=== PATIENT | male | born 1960 | race Caucasian/White ===

== ENCOUNTER 2017-03-05 09:02 | Inpatient (IN) | payer MEDICAID ==
[2017-03-05] MEDS ORDERED: IPRATROPIUM/ALBUTEROL 3 ML DEYVIAL IH ONE (09:45)
--- NOTE | 2017-03-05 09:52 | EDPHY ---
H & P Time Seen by Provider: 03/05/17 09:13 HPI/ROS: HPI Shortness of breath. 56-year-old male by [facility] This patient has a history of heavy smoking and probable COPD. He reports that he has felt short of breath, worse when awakening in the morning for at least the last 6 months. He was seen at [facility] 3 weeks ago. He was diagnosed at that time with a walking pneumonia. He was prescribed Levaquin, 750 mg daily. He reports that he took 1-2 of these pills and then stop taking this medication. He reports that he then started taking the medication again and took 750 mg this morning. He has 4 tablets left. He complained to the staff at the [facility] about feeling short of breath this morning and they sent him to the emergency department. He also reports that he has had an intermittent nonproductive cough for at least the last 6 months as well. ROS: Constitutional: No fever, no chills. No weakness. Eyes: No discharge. No changes in vision. ENT: No sore throat. No nasal congestion or rhinorrhea. Respiratory: As above. Cardiac: No chest pain, no palpitations. Gastrointestinal: No abdominal pain, no vomiting, no diarrhea. Musculoskeletal: No back pain. No neck pain. No myalgias or arthralgias. Skin: No rashes. Neurological: No headache. No focal weakness or altered sensation. Past medical history: Spinal surgery, pneumonia, sepsis, COPD. Social history: Heavy smoker, alcohol abuse, homeless. Physical Exam: General Appearance: Alert, no distress. Disheveled. This patient is responding to questions appropriately and in full sentences. This patient appears well-hydrated and well-nourished. Eyes: Pupils equal and round no pallor or injection. No lid edema, erythema or injection. Respiratory: There are no retractions, air movement is diminished bilaterally. No wheezing. No rhonchi or crackles noted. No tachypnea. Cardiovascular: Regular rate and rhythm. No murmur. Gastrointestinal: Abdomen is soft and nontender, no masses, bowel sounds normal. No focal tenderness at McBurney's point. No Hernandez sign. Neurological: Motor sensory function is grossly intact. Cranial nerves are normal. Gait is normal. Skin: Warm and dry, no rashes. Surgical scar elliptical around left scapula. Musculoskeletal: Neck is supple and nontender. Extremities are symmetrical. All joints range without pain or impingement. Psychiatric: No agitation. No depression. Database: EKG: Imaging: Chest x-ray PA and lateral; the cardiac mediastinal silhouette is unremarkable. Significant for right middle lobe infiltrate superimposed for chronic airway disease. No other acute cardiopulmonary disease process noted. Interpreted by me. Procedures: Emergency department course: IV placed per EMS, vital signs reviewed, patient is afebrile. Vital signs are unremarkable. He is 94% currently on 1 L nasal cannula oxygen. He will be started on [id number] albuterol/Atrovent nebulizer treatments. Chest x-ray will be obtained. 10:15 a.m., patient re-evaluated. Room air pulse oximetry while at rest is 85% . With any activity drops to the upper 70s. Plan for admission discussed. Blood cultures will be drawn. Standard lab work obtained. He will be started on IV Rocephin and azithromycin. I am concerned about resistance to Levaquin being that he took this for some time and then prematurely stopped taking it. Hospitalist paged. Patient does not meet criteria for sepsis. 10:30 a.m., spoke with hospitalist. Patient accepted for admission by Dr. Benson. Patient's remaining emergency department course under my care has been unremarkable. Blood cultures obtained in the emergency department. Antibiotics started as above in the emergency department. He was admitted in stable condition to the hospitalist service. Differential Diagnosis: The differential diagnosis on this patient includes but is not limited to pneumonia, COPD exacerbation, bronchitis, chronic hypoxia. This represents a partial list of diagnoses considered. These considerations are based on history , physical exam, past history, reassessment and diagnostic testing. Smoking Status: Current every day smoker Constitutional: Initial Vital Signs Temperature (C) 36.7 C 03/05/17 09:07 Heart Rate 108 H 03/05/17 09:07 Respiratory Rate 18 03/05/17 09:07 Blood Pressure 117/80 03/05/17 09:07 O2 Sat (%) 89 L 03/05/17 09:07 O2 Delivery Mode Room Air O2 (L/minute) 1 Allergies/Adverse Reactions: No Known Allergies Allergy (Unverified 03/05/17 09:07) Home Medications: Medication Instructions Recorded levAQUIN 03/05/17 Medical Decision Making - Diagnostics Imaging Results: Imaging Impressions Chest X-Ray 03/05/17 09:14 Impression: Right middle lobe pneumonia superimposed on suspected underlying chronic airways disease. - Data Points Laboratory Results: Laboratory Results 03/05/17 09:00 03/05/17 09:00 03/05/17 03/05/17 09:00 09:00 WBC 9.17 10^3/uL 10^3/uL (3.80-9.50) RBC 5.98 10^6/uL 10^6/uL (4.40-6.38) Hgb 18.0 g/dL H g/dL (13.7-17.5) Hct 55.1 % H % (40.0-51.0) MCV 92.1 fL fL (81.5-99.8) MCH 30.1 pg pg (27.9-34.1) MCHC 32.7 g/dL g/dL (32.4-36.7) RDW 15.8 % H % (11.5-15.2) Plt Count 267 10^3/uL 10^3/uL (150-400) MPV 11.0 fL fL (8.7-11.7) Neut % (Auto) 66.1 % % (39.3-74.2) Lymph % (Auto) 23.9 % % (15.0-45.0) [place] % (Auto) 5.7 % % (4.5-13.0) Eos % (Auto) 3.3 % % (0.6-7.6) Baso % (Auto) 0.7 % % (0.3-1.7) Nucleat RBC Rel Count 0.0 % % (0.0-0.2) Absolute Neuts (auto) 6.07 10^3/uL 10^3/uL (1.70-6.50) Absolute Lymphs (auto) 2.19 10^3/uL 10^3/uL (1.00-3.00) Absolute Monos (auto) 0.52 10^3/uL 10^3/uL (0.30-0.80) Absolute Eos (auto) 0.30 10^3/uL 10^3/uL (0.03-0.40) Absolute Basos (auto) 0.06 10^3/uL 10^3/uL (0.02-0.10) Absolute Nucleated RBC 0.00 10^3/uL 10^3/uL (0-0.01) Immature Gran % 0.3 % % (0.0-1.1) Immature Gran # 0.03 10^3/uL 10^3/uL (0.00-0.10) Sodium 145 mEq/L mEq/L (135-145) Potassium 4.9 mEq/L mEq/L (3.5-5.2) Chloride 101 mEq/L mEq/L (97-110) Carbon Dioxide 27 mEq/l mEq/l (22-31) Anion Gap 17 mEq/L H mEq/L (8-16) BUN 23 mg/dL mg/dL (7-23) Creatinine 0.8 mg/dL mg/dL (0.7-1.3) Estimated GFR > 60 Glucose 86 mg/dL mg/dL (70-100) Calcium 10.0 mg/dL mg/dL (8.5-10.4) Medications Given: Discontinued Medications Albuterol/Ipratropium (Duoneb) 6 ml IH EDNOW ONE Stop: 03/05/17 09:46 Last Admin: 03/05/17 09:48 Dose: 6 ml Sodium Chloride (Ns) 1,000 mls @ 0 mls/hr IV ONCE ONE; Wide Open PRN Reason: Protocol Stop: 03/05/17 10:19 Last Admin: 03/05/17 10:24 Dose: 1,000 mls Departure - Departure Disposition: [facility] Inpatient Acute Clinical Impression: COPD exacerbation, Pneumonia, Hypoxia
[2017-03-05] MEDS ORDERED: AZITHROMYCIN IV 500 MG in D5W 250 ML IV ONE (10:18)
[2017-03-05] MEDS ORDERED: cefTRIAXone 1 GM in STERILE WATER INJ 10 ML IV ONE (10:18)
[2017-03-05] MEDS ORDERED: NS 1,000 ML IV ONE ×2 (10:18→11:24)
[2017-03-05 10:30] LABS: PLATELET COUNT 267 10^3/uL (150-400)
[2017-03-05] MEDS ORDERED: ONDANSETRON DISINTEGRATING 4 MG TAB PO PRN (11:24)
[2017-03-05] MEDS ORDERED: ONDANSETRON 4 MG/2 ML VIAL IVP PRN (11:24)
[2017-03-05] MEDS ORDERED: ACETAMINOPHEN 325 MG TAB PO PRN (11:24)
[2017-03-05] MEDS ORDERED: ALBUTEROL 60 PUFFS/8 GM MDI IH PRN (14:16)
[2017-03-05] MEDS ORDERED: HYDROCODONE/APAP 5/325 TAB PO PRN (14:16)
[2017-03-05 14:42] VITALS: O2SAT 90
--- NOTE | 2017-03-05 14:52 | GHP ---
[f rep st] HISTORY AND PHYSICAL DATE OF ADMISSION: 03/05/2017 CHIEF COMPLAINT: Dyspnea. HISTORY OF PRESENT ILLNESS: A 56-year-old male with a preceding history of COPD, who presents with a pproximately 3 weeks of shortness of breath, fatigue, nonproductive cough, subjective fevers and chil ls. Patient cannot specifically give a history of progressive symptoms. Reports that he has been ev aluated at [facility], another Hospital, as well as [facility], in this time period and been prescribed antibiotics on more than 1 occasion, none of which has he completed courses for, but repre sents to the emergency department with persistent dyspnea and the perception that he has pneumonia. The patient endorses epigastric abdominal pain. No nausea or vomiting. Denies any dysuria, diarrhea , lower extremity edema, rashes, or known sick contacts. The patient is homeless, however, and curre ntly residing at various shelters. PAST MEDICAL HISTORY: COPD. SOCIAL HISTORY: Patient still smokes a pack per day. Denies alcohol. Does use marijuana. Denies i llicit drugs. FAMILY HISTORY: Positive for diabetes. REVIEW OF SYSTEMS: A 10-point review of systems is negative with the exception of that reported in t he HPI. PHYSICAL EXAMINATION: VITAL SIGNS: Blood pressure 118/73, heart rate 108, sating 89% on room air, 3 6.7. GENERAL: This is a thin, disheveled middle-aged male in no acute distress. HEENT: Notable for dry mucous membranes. Eye exam is negative for any icterus. CARDIAC: Patient's heart sounds are d istant. PULMONARY: Diminished breath sounds with a prolonged expiratory phase, isolated wheeze hear d on the right, otherwise, no rales or rhonchi. GASTROINTESTINAL: Positive bowel sounds. Abdomen i s thin. MUSCULOSKELETAL: Negative for any lower extremity edema. SKIN: Negative for any rashes. NEUROLOGIC: He is alert and oriented x3. PSYCHIATRIC: He is agitated on my interview and examinati on. DATA: White count 9.1, hematocrit 55.1, platelets of 267. Creatinine 0.8, anion gap is 17, sodium 1 45. Chest x-ray, which I personally reviewed and interpreted, shows hyperinflation. Radiology comme nts on a right middle lobe infiltrate. Have no previous to compare to. ASSESSMENT AND PLAN: This is a 56-year-old male presenting with dyspnea: 1. Acute hypoxic respiratory failure. Patient is presenting with oxygen saturations of 89% on room air. Suspect based on history and symptoms, this is likely secondary to his chronic obstructive pulm onary disease confounded by bronchitis. Will admit the patient, complete active course of antibiotic s, treat with inhaled beta agonist and continue his home dosing of inhaled steroids. Have sent a res piratory viral panel, as well as a procalcitonin to better understand the patient's admission imaging and history of recent pulmonary complaints. 2. Chronic obstructive pulmonary disease. Clearly hyperinflation on chest imaging at admission, wit h active tobacco dependence. Again, will treat as above. 3. Anion gap. Suspect likely related to ketosis from poor p.o. intake in his homeless status. We w ill fluid resuscitate and recheck in the morning. 4. Polycythemia. Again, suspect related to hemoconcentration. Will recheck in the morning. 5. Prophylaxis with Lovenox. 6. Diet, regular. DISPOSITION: I expect in less than 2 midnights if the patient responds well to hydration and respira tory care. I have discussed the case with the emergency room physician. Patient will be triaged to the medical- surgical floor for care. /[id number]/MODL
[2017-03-05] MEDS: guaiFENesin 600 MG TAB.ER PO SCH ×2 (15:20→20:31)
[2017-03-05] MEDS ORDERED: LICE KILLING SHAMPOO 118 ML TP ONE (15:54)
[2017-03-05] MEDS: IPRATROPIUM/ALBUTEROL 3 ML DEYVIAL IH SCH ×3 (16:08→23:19)
[2017-03-05] MEDS: NAPROXEN SODIUM 220 MG TAB PO SCH (20:53)
[2017-03-05] MEDS ORDERED: PREGABALIN 50 MG CAP PO SCH (21:00)
[2017-03-05] MEDS ORDERED: NON-FORMULARY NEW DRUG (Naproxen [Naproxen] 500 MG) PO SCH (21:00)
[2017-03-05] MEDS ORDERED: NAPROXEN 500 MG PO SCH (21:00)
[2017-03-06 05:18] LABS: PLATELET COUNT 224 10^3/uL (150-400)
[2017-03-06] MEDS: IPRATROPIUM/ALBUTEROL 3 ML DEYVIAL IH SCH (06:07)
[2017-03-06] MEDS ORDERED: AZITHROMYCIN IV 500 MG in D5W 250 ML IV SCH (09:00)
[2017-03-06] MEDS ORDERED: ENOXAPARIN 40 MG/0.4 ML SYR SC SCH (09:00)
[2017-03-06] MEDS ORDERED: cefTRIAXone 1 GM in STERILE WATER INJ 10 ML IV SCH (09:00)
[2017-03-06] MEDS ORDERED: ASCORBIC ACID 500 MG TAB PO SCH (09:00)
[2017-03-06] MEDS: guaiFENesin 600 MG TAB.ER PO SCH (09:33)
[2017-03-06] MEDS: NAPROXEN SODIUM 220 MG TAB PO SCH (09:33)
[2017-03-06 09:41] VITALS: BP 115/79; PULSE 105; RESP 16; TEMP 98.3
--- NOTE | 2017-03-06 14:30 | ASDISCHSUM ---
Discharge Information Plan Status:Home with No Needs Medically Cleared to Leave:03/05/2017 Discharge Date:03/06/2017 11:16 AM CM D/C Disposition: ADT D/C Disposition:Home, Routine, Self-Care Projected Discharge Date:03/06/2017 12:00 AM Transportation at D/C: Discharge Delay Reason: Follow-Up Date:03/06/2017 12:00 AM Discharge Slot: Final Diagnosis: Placement Information Patient Contact Information Contact Name:DAKOTACHINTAN Relationship: Address: Home Phone: Work Phone: City: Alternate Phone: State/Zip Code: Email: Financial Information Financial Class:MD Primary Plan Desc:MEDICA[employer] HEALTH FIRST FIELD AGENT Primary Plan Number:[id number] Secondary Plan Desc: Secondary Plan Number: Assessment Information Intervention Information
--- NOTE | 2017-03-06 19:04 | GDS ---
[f rep st] DISCHARGE SUMMARY DISCHARGE DIAGNOSES: Include: 1. Acute chronic obstructive pulmonary disease exacerbation. 2. Presumed community-acquired pneumonia. 3. Lice. 4. Homelessness. 5. Chronic pain. HISTORY OF PRESENT ILLNESS: This is a 56-year-old male who is currently homeless, with COPD, who pre sents with complaints of shortness of breath. For details of patient's initial presentation, please see the history and physical dated 03/05/2017. CONSULTATIVE SERVICES: None. PROCEDURES: None. HOSPITAL COURSE: By issue: 1. Acute chronic obstructive pulmonary disease exacerbation. Patient presented with worsening sympt oms consistent with inaab-ya-dqoontc bronchitis, increasing cough and sputum production. The patient was not wheezing on examination, therefore, was not started on steroid therapy, but was initiated on inhaled beta agonist and antibiotic therapy. The patient had a faster than expected response to the rapy and was nearly symptom-free the morning after hospitalization with stable vital signs surprising ly appropriate for disposition. 2. Presumed community-acquired pneumonia. Patient had preceding history of shortness of breath and cough for several weeks. I suspect likely his initial illness was viral. He was initiated on antibi otics in the outpatient setting. Radiology did comment on a right-sided infiltrate on chest x-ray. We decided to commit to a course of antibiotics, completing his levofloxacin to entirely treat commun ity-acquired pneumonia. The patient will complete the oral therapy with levofloxacin after dispositi on. 3. Chronic pain. Patient was continued on his home regimen without a new prescription. 4. Acute head lice. Patient was treated for lice during his hospital stay. DISPOSITION: Patient is being discharged back to the homeless shelters. We will note he had an unex pectedly fast response to inhaled therapy and antibiotics overnight and was placed sooner than we exp ected for disposition back to the street. Pending studies at the time of this dictation include blood cultures and sputum cultures, which are n o growth preliminarily at the time of disposition. FOLLOWUP APPOINTMENTS: Include with his newly established primary care provider at [facility] f or post disposition followup in the next 1-2 weeks after completion of his antibiotics orally. I spent greater than 30 minutes in the planning and coordination of this discharge. /[id number]/MODL
--- NOTE | 2017-03-07 17:28 | PDMN ---
Medical Necessity Medical necessity: Pt meets IP criteria per MD; est los >2 mn for acute hypoxic respiratory failure, COPD exacerbation, presumed community-acquired pneumonia & acute head lice; admit for further workup/monitoring & supportive care; hx homelessness & COPD per H&P & order 03/05/17
--- NOTE | 2017-03-11 12:22 | PQFORM ---
PHYSICIAN QUERY FORM Needs Your Response This query form is being sent to you to assure this patient record is coded properly. Please respond to the question below: RIGHT OF WAY SUPERVISOR QUESTION: Dr. Benson, On your history and physical, you document this patient had acute hypoxic respiratory failure based on his presentation of 89% oxygen saturations on room air on admission. The diagnosis of acute hypoxic respiratory failure is also used as medical necessity criteria for admission. Can the diagnosis of acute hypoxic respiratory be added to the discharge summary? x___ yes no other Thank you for clarifying, SUKUMAR Aguilar HIM Coding INSTRUCTIONS FOR RESPONSE: Answer question by clicking on the "Edit Document" button. Move cursor to area below the stars. When complete, hit "Save." Click on the "Sign" button, then click "Sign" again. Type in your PIN and hit "Enter." MTDD
== END 2017-03-06 11:16 | disposition home or self-care (01) | DRG 190 ==
LOC: OBSVTOIN 11:24 → F3E 14:40
PROVIDERS: ADMIT Hospitalist; ATTEND Hospitalist
DX: J44.1 Chronic obstructive pulmonary disease with (acute) exacerbation (principal); J44.0 Chronic obstructive pulmonary disease with (acute) lower respiratory infection; J18.9 Pneumonia, unspecified organism; J96.01 Acute respiratory failure with hypoxia; Z59.0 Homelessness; G89.29 Other chronic pain; B85.0 Pediculosis due to Pediculus humanus capitis; F17.210 Nicotine dependence, cigarettes, uncomplicated
CPT/HCPCS: 96365; J0456; J0696; J1650

== ENCOUNTER 2018-06-26 11:30 | Day surgery (SDC) | payer MEDICAID ==
[2018-06-26] MEDS ORDERED: MEPERIDINE 25 MG/ML SYR IVP PRN (12:37)
[2018-06-26] MEDS ORDERED: fentaNYL 100 MCG/2 ML INJ IVP PRN (12:37)
[2018-06-26] MEDS ORDERED: MIDAZOLAM 2 MG/2 ML VIAL IVP PRN (12:37)
[2018-06-26] MEDS ORDERED: NALOXONE HCL 0.4 MG/ML INJ IVP PRN (12:37)
[2018-06-26] MEDS ORDERED: FLUMAZENIL 0.5 MG/5 ML MDV IVP PRN (12:37)
[2018-06-26] MEDS ORDERED: TRIAMCINOLONE ACETONIDE 200 MG/5 ML MDV IM ONE (12:39)
[2018-06-26] MEDS ORDERED: IOPAMIDOL (ISOVUE-M 300) 15 ML VIAL ONE (12:39)
[2018-06-26] MEDS ORDERED: NS 1,000 ML IV SCH (12:45)
--- NOTE | 2018-06-26 13:31 | PDPROPOC ---
Sedation Plan of Care ASA Classification: ASA 2 Mallampati Score: Class 2 Mallampati Reference Image:
--- NOTE | 2018-06-26 13:31 | PDRADPRE ---
Radiology History & Physical Indication for procedure: back pain Home medications: Albuterol [Proventil Inhaler HFA (*)] 2 puffs IH Q4-6PRN PRN 03/05/17 [Last Taken Unknown] Ascorbic Acid [Vitamin C 500 mg (*)] 500 mg PO DAILY 03/05/17 [Last Taken Unknown] Hydrocodone/APAP 5/325 [[place] 5/325 (*)] 1 each PO TID PRN 03/05/17 [Last Taken 03/04/17 09:00] Ipratropium [Atrovent Hfa (*)] 2 puffs IH QID 03/05/17 [Last Taken 03/05/17] Naproxen 500 mg PO BID 03/05/17 [Last Taken 03/04/17 09:00] Pregabalin [Lyrica 50mg (*)] 50 mg PO HS 03/05/17 [Last Taken 03/04/17] levOFLOXACIN [levAQUIN (*)] 750 mg PO DAILY 03/05/17 [Last Taken 03/05/17] Allergies/Adverse Reactions: No Known Allergies Allergy (Unverified 03/05/17 09:07) Mental status: A&Ox3
--- NOTE | 2018-06-26 14:01 | PDRADPN ---
Radiology Procedure Note Date of Procedure: 06/26/18 Radiologist: Jazmin Castle Anesthesia: IV Sedation Pre-op Diagnosis: back pain Post-op Diagnosis: same Procedure: L4-L5 MUNA and left L4 SNRB Inf/Abcess present in the surg proc area at time of surgery?: No
[2018-06-26 14:39] VITALS: BP 125/83
== END 2018-06-26 14:35 | disposition home or self-care (01) ==
LOC: FIMAGING 11:30
PROVIDERS: ATTEND Radiology Diagnostic Radiology
DX: M54.16 Radiculopathy, lumbar region (principal); M48.061 Spinal stenosis, lumbar region without neurogenic claudication; G89.29 Other chronic pain; G25.81 Restless legs syndrome; J44.9 Chronic obstructive pulmonary disease, unspecified; F17.210 Nicotine dependence, cigarettes, uncomplicated; F43.10 Post-traumatic stress disorder, unspecified; Z79.899 Other long term (current) drug therapy
CPT/HCPCS: J2250; J2310; J3010; J3301; Q9967